=== PATIENT | female | born 1960 | race Caucasian/White ===

== ENCOUNTER 2017-05-07 15:07 | Inpatient (IN) ==
[2017-05-07] MEDS ORDERED: ONDANSETRON 4 MG/2 ML VIAL ONE (15:25)
[2017-05-07] MEDS ORDERED: MORPHINE 2 MG/1 ML SYRINGE ONE (15:25)
[2017-05-07] MEDS ORDERED: ASPIRIN 325 MG TABLET ONE (15:25)
[2017-05-07] MEDS ORDERED: FUROSEMIDE 40 MG/4 ML VIAL ONE (15:26)
[2017-05-07] MEDS ORDERED: NITROGLYCERIN 2% OINT 1 INCH/GM PACK TOP ONE (15:26)
[2017-05-07] MEDS ORDERED: FUROSEMIDE 20 MG/2 ML VIAL ONE (15:26)
[2017-05-07] MEDS ORDERED: ASPIRIN 325 MG TABLET PO STA (15:31)
[2017-05-07] MEDS ORDERED: FUROSEMIDE 100 MG/10 ML VIAL IV STA (15:31)
[2017-05-07] MEDS ORDERED: ONDANSETRON 4 MG/2 ML VIAL IV STA (15:31)
[2017-05-07] MEDS ORDERED: MORPHINE 2 MG/1 ML SYRINGE IV STA (15:31)
[2017-05-07] MEDS ORDERED: methylPREDNISolone SOD SUC 125 MG/2 ML VIAL IV STA (15:31)
[2017-05-07] MEDS ORDERED: NITROGLYCERIN 2% OINT 1 INCH/GM PACK TOP STA (15:31)
[2017-05-07] MEDS ORDERED: cefTRIAXone 1,000 MG in SODIUM CHLORIDE 0.9% 100 ML IV STA (15:31)
--- NOTE | 2017-05-07 15:35 | EKG Report ---
Stationary ECG Study [facility] ER Test Date: 05/07/2017 3:17:56 PM Pat Name: COCO DAVIDSON Department: Room: Gender: F Parking Ramp Attendant: : 1960 Requested by: Eral Du Order Number: [id number] Osei MD: GIOVANI ARANGO Intervals [place] Rate: 90 P: 52 OH: 139 QRS: -63 QRSD: 194 T: 87 QT: 418 QTc: 466 Interpretive Statements ELECTRONIC VENTRICULAR PACEMAKER at 90 bpm (appears to be tracking normal sinus rhythm) Electronically Signed On 05-07-17 15:37:15 CDT by GIOVANI ARANGO [email or web address]
[2017-05-07] MEDS ORDERED: HYDROmorphone 2 MG/1 ML VIAL IV STA (15:40)
[2017-05-07 15:41] LABS: ABG Base Excess 0.4 MMOL/L (-2.5-2.5); ABG HCO3 24.7 MMOL/L (20-26); ABG Oxygen Saturation 95.5 % (95-100); ABG PCO2 38.3 MM HG (35-48); ABG PH 7.417 (7.35-7.45); ABG PO2 75.7 MM HG (80-95); ABG TCO2 20.8 MMOL/L (23-27)
[2017-05-07] MEDS ORDERED: cefTRIAXone 1,000 MG VIAL ONE (15:44)
[2017-05-07] MEDS ORDERED: methylPREDNISolone SOD SUC 125 MG/2 ML VIAL ONE (15:44)
[2017-05-07] MEDS ORDERED: HYDROmorphone 2 MG/1 ML VIAL ONE (15:44)
[2017-05-07 15:52] LABS: Basophils % 0.2 % (0.0-0.8); Eosinophils # 0.1 10*3/uL (0.0-0.87); Eosinophils % 0.6 % (0.00-10.9); Hematocrit 45.3 VOL% (35.7-47.0); Hemoglobin 15.9 GM/DL (12.0-16.0); Immature Granulocytes % 0.5 %; Immature Granulocytes Absolute 0.05 #; Lymphocytes # 1.3 10*3/uL (1.4-4.0); Lymphocytes % 13.2 % (21.3-54.2); Mean Corpuscular HGB Conc 35.1 GM/DL (32-36); Mean Corpuscular Hemoglobin 34 PG (27-34); Mean Corpuscular Volume 97.2 FL (87-102); Monocytes # 0.6 10*3/uL (0.11-0.8); Monocytes % 6.5 % (1.7-12.7); Neutrophils # 7.5 10*3/uL (1.4-7.4); Platelet Count 262 T/CUMM (130-400); Red Blood Count 4.66 MC/CUMM (3.8-5.5); Red Cell Distribution Width 12.7 % (9.3-17.3); White Blood Count 9.5 T/CUMM (4-12)
[2017-05-07] MEDS ORDERED: ALBUTEROL 2.5 MG/3 ML NEB RESP TX SCH (16:00)
--- NOTE | 2017-05-07 16:03 | XRay Report ---
Exam: XR chest 1V portable Indication: Shortness of breath Comparison study: 04/17/2011 Findings: Cardiac silhouette is mildly enlarged. There has been development of perihilar and basilar interstitial airspace opacities with low lung volumes suggestive of pulmonary edema changes and atelectasis. Underlying infiltrates are difficult to exclude. Upper lungs are predominantly clear. There is no pneumothorax. There is no significant pleural effusion. Left chest pacemaker device and wire leads appear stable position. Cardiac silhouette is again mildly enlarged. There is no acute osseous abnormality. Impression: Findings suggestive of pulmonary edema changes. Basilar atelectasis and/or infiltrates and trace pleural effusions are not excluded. PROCEDURE INTERPRETED AT [facility] DEPARTMENT OF RADIOLOGY Final Report Signed by: Sami Rene
[2017-05-07 16:06] LABS: D-Dimer 0.9 MG/L FEU; PT Patient Result 10.2 SECS
--- NOTE | 2017-05-07 16:08 | Emergency Department Note ---
IErnst Emily, am scribing for, and in the presence of, Earl Cameron MD 15: 39. IRakesh Charles R, MD, personally performed the services described in this documentation, ascribed by Janice Dukes in my presence, and it is both accurate and complete 608 . Arrival - Arrival Chief Complaint: Shortness of Breath Stated Complaint: sob ED Nursing Triage Note: patient to room via ems with c/o shortness of breath that started this am. patient states that it started as left upper back pain and went around to her chest. patient states it started at 730 and got worse about 45 mins ste[place]. patient o2sat is 90% on 3.5 liters n/c Mode of Arrival: Stretcher Limitations: No Limitations Source: Patient Time Seen by Provider: 05/07/17 15:20 - History of Present Illness HPI Narrative: Pt is a 56 y/o female who came to ED with c/o left shoulder blade pain that radiates to right shoulder and around to left chest pain that started after shower at 730am. Pt notes the pain increased and has severe SOB, noting that she can't take a deep breath and has orthopnea. She states "feels like an elephant sitting on my chest." Pt reports almost dying 5 yrs ago, in which had a pacemaker put in but no defibrillator. Also, having a heart cath then but was found clean, and denies heart attack in the past. Pt admits to smoking tobacco but denies heavy smoking. Onset (ago): hour(s) Consistency: constant Severity: moderate, severe Severity scale (1-10): 8 Quality: fullness Allergies/Adverse Reactions: Allergies Allergy/AdvReac Type Severity Reaction Status Date / Time No Known Allergies Allergy Unverified 05/07/17 15:18 Review of System - Review of System 12 point system: reviewed and no additional remarkable complaints except as stated - Review of System Constitutional: Absent: fever Respiratory: Present: respiratory distress, wheezing Cardiovascular: Present: chest pain, orthopnea. Absent: dyspnea on exertion, edema Gastrointestinal: Absent: abdominal pain, nausea, vomiting Musculoskeletal: Present: upper back pain. Absent: arm pain, lower back pain, leg pain, neck pain Skin: Absent: rash Neurological: Absent: headache, numbness Psychiatric: Absent: anxiety Medical,Surgical,& Family Hx - Medical History Cardio: History of: Pacemaker - Family History Family History: noncontributory - Social History Smoking Status: Current every day smoker Frequency of Alcohol Use: None Type of Drug Use: None Marital Status: Single Lives With:: Alone Functional capacity: independent ambulation Exam Vital Signs: Vital Signs Temperature 98.2 F 05/07/17 15:07 Pulse Rate 110 H 05/07/17 16:30 Respiratory Rate 21 05/07/17 16:30 Blood Pressure 138/87 05/07/17 15:07 O2 Sat by Pulse Oximetry 91 L 05/07/17 16:30 - General General appearance: alert, in distress (moderate to severe) - Head Head exam: Present: atraumatic, normocephalic - Eye Eye exam: Present: PERRL, EOMI - ENT ENT exam: Present: mucous membranes moist. Absent: mucous membranes dry - Neck Neck exam: Present: full ROM. Absent: tenderness - Chest Chest inspection: Present: symmetric chest wall rise. Absent: tenderness - Respiratory Respiratory exam: Present: accessory muscle use (retractions), rales, respiratory distress, wheezes, other (tachypnic). Absent: normal lung sounds bilaterally (decreased breath sounds bilaterally) - Cardiovascular Cardiovascular exam: Present: tachycardia, normal heart sounds - Abdominal Exam Abdominal exam: Present: soft, normal bowel sounds. Absent: tenderness - Extremities Exam Extremities exam: Present: full ROM, pedal edema (+2). Absent: tenderness - Neurological Exam Neurological exam: Present: alert, oriented X3, CN II-XII intact. Absent: motor sensory deficit - Psychiatric Psychiatric exam: Present: normal affect, normal mood - Skin Skin exam: Present: warm, dry Course Course Narrative: Discussed with pt of possible intubation and she has agreed to these measures, if needed. - Consultations Consultation #1: Hospitalist will admit patient Time: 16:45 Results - Labs CBC & BMP: 05/07/17 15:41 05/07/17 15:41 Lab Results: I have reviewed the patients labs Labs: Laboratory Tests 05/07/17 05/07/17 15:31 15:41 WBC 9.5 RBC 4.66 Hgb 15.9 Hct 45.3 Plt Count 262 Neut % (Auto) 79.0 H Lymph % (Auto) 13.2 L Neut # (Auto) 7.5 H Lymph # (Auto) 1.3 L ABG pH 7.417 ABG pCO2 38.3 ABG pO2 75.7 L ABG HCO3 24.7 ABG Total CO2 20.8 L ABG O2 Saturation 95.5 ABG Base Excess 0.4 FiO2 36.00 Laboratory Tests 05/07/17 15:41 INR 1.0 PT Patient/Control Mix 10.2 D-Dimer, Quantitative 0.9 Laboratory Tests 05/07/17 15:41 Sodium 139 Potassium 3.6 Chloride 103 Carbon Dioxide 29 BUN 21 H Creatinine 1.20 H Glucose 112 H Troponin I < 0.015 Globulin 3.7 H - Diagnostic Findings Procedure: Chest x-ray: report reviewed by me (Findings suggestive of pulmonary edema changes. Basilar atelectasis and/or infiltrates and trace effusions are not excluded.) Critical Care Time Critical Care Time: Yes Total Critical Care Time: 60 (minutes) Disposition Clinical Impression: Acute exacerbation of chronic obstructive airways disease, Tobacco abuse, Acute dyspnea Case discussed with: patient, patient's family Disposition: Still a Patient Condition: Guarded Time of Disposition: 16:44
[2017-05-07 16:14] LABS: Alanine Aminotransferase 22 U/L (13-56); Albumin 4.2 G/DL (3.4-5.0); Alkaline Phosphatase 91 U/L (45-117); Aspartate Amino Transferase 20 U/L (0-37); Blood Urea Nitrogen 21 MG/DL (7-18); Calcium 9.6 MG/DL (8.5-10.1); Glucose 112 MG/DL (74-106); Magnesium 1.9 MG/DL (1.8-2.4); Osmolality,Calculated 280.5 MOS/KG (273-304); Potassium 3.6 MMOL/L (3.5-5.1); Sodium 139 MMOL/L (136-145); Total Protein 7.9 G/DL (6.4-8.3); Troponin I Only < 0.015 NG/ML (0.00-0.045)
[2017-05-07] MEDS ORDERED: METHOCARBAMOL 1,000 MG/10 ML VIAL IV STA (16:40)
[2017-05-07] MEDS ORDERED: ENOXAPARIN 100 MG/ML SYRINGE SUBCUT STA (16:40)
[2017-05-07] MEDS ORDERED: METHOCARBAMOL 1,000 MG/10 ML VIAL ONE (16:45)
[2017-05-07] MEDS ORDERED: ENOXAPARIN 100 MG/ML SYRINGE SUBCUT ONE (16:45)
[2017-05-07 17:02] LABS: Apearance,Urine CLEAR (Clear); Bilirubin,Urine Negative (Negative); Blood, Urine Negative (Negative); Glucose,Urine (UA) Negative (Negative); Hyaline Casts,Urine 8 /LPF (0-3); Ketones,Urine Negative (Negative); Nitrite,Urine Negative (Negative); Protein,Urine Negative; RBC,Urine <1 /HPF (0-4); Squamous Epithelial Cell,Urine Occasional /HPF (0-10); Urine Color Yellow (Yellow); Urine Specific Gravity 1.016 (1.001-1.035); Urine Urobilinogen < 2.0 EU/DL (0.2-1.0); WBC,Urine <1 /HPF (0-6)
[2017-05-07 17:07] LABS: Barbiturates Screen,Urine Negative (Negative); Benzodiazepines Screen,Urine Positive (Negative); Cannabinoid Screen,Urine Negative (Negative); Opiate Screen,Urine Positive (Negative); Phencyclidine Screen,Urine Negative (Negative)
[2017-05-07] MEDS ORDERED: METOPROLOL TARTRATE 25 MG TABLET PO STA (17:33)
--- NOTE | 2017-05-07 17:37 | Hospitalist History & Physical ---
Assessment and Plan - Time spent with patient Time spent with patient: Greater than 30 minutes (1) Acute dyspnea Status: Acute Assessment and plan: Patient has acute dyspnea. Chest x-ray is consistent with pulmonary edema as is her history of recent orthopnea and dyspnea on exertion. However she also has shortness of breath with cough productive of green sputum which may be bronchitis with mild exacerbation of COPD however she has no wheezing on exam. We will admit her to a cardiac monitored bed and obtain serial cardiac isoenzymes while providing aspirin, nitrates, Lovenox, beta blockade and obtain echocardiogram in the a.m. along with formal cardiology consultation. Because of her tobacco use history of COPD with symptoms of at least bronchitis, she has been cultured and placed on empiric IV antibiotics will continue O2 supplementation and nebulizer therapy. Will hold off on any corticosteroid therapy at this time as she is not wheezing. Current Visit: Yes (2) Hypertension Status: Chronic Assessment and plan: Patient is currently hemodynamically stable. Continue current medical therapy and follow closely. Current Visit: Yes Qualifiers: Hypertension type: essential hypertension Qualified Code(s): I10 - Essential (primary) hypertension (3) Tobacco abuse Status: Chronic Assessment and plan: We have discussed smoking cessation she states that she is going to quit immediately. Current Visit: Yes (4) History of permanent cardiac pacemaker placement Status: Chronic Assessment and plan: Cardiology has been consulted. Current Visit: Yes History of Present Illness Chief complaint: Short of breath History of present illness: Ms. Chopra is a 56 year old white female with a history of hypertension, status post permanent pacemaker placement [address] Valdivia who presents complaining of onset of severe pain of dull quality originating in the upper back and subscapular regions early this morning and has been constant now for 7- 8 hours with associated shortness of breath but no nausea or diaphoresis. She states it does hurt to inspire. She states that she is normally able to sleep lying on her side however today she must sit straight up otherwise she gets short of breath when lying back. She is also complaining of significant increase in dyspnea with exertion from fairly unlimited to approximately 10 yards today. She has had a mild cough productive of yellow to green phlegm. She states that she does not wear home O2 but does have some inhalers that she uses. She denies any fever, chills, diarrhea, constipation, melena, hematochezia, hematemesis, dysuria, hematuria, urinary frequency urgency incontinence, focal motor weakness or paresthesias, headache, visual or auditory disturbances. Home Medications Medication Instructions Recorded Confirmed Type Gemfibrozil [Lopid] 600 mg PO BID 05/07/17 05/07/17 History Metoprolol Succinate Xl [Toprol Xl] 100 mg PO DAILY 05/07/17 05/07/17 History RX: Aspirin EC Tab 81 mg PO DAILY 05/07/17 05/07/17 History Sertraline [Zoloft] 200 mg PO BEDTIME 05/07/17 05/07/17 History Triamterene/Hctz 37.5-25 Tab 1 tablet PO DAILY 05/07/17 05/07/17 History [Maxzide 37.5-25] Allergies Allergy/AdvReac Type Severity Reaction Status Date / Time morphine Allergy Hallucinati Verified 05/07/17 17:31 ng Medical,Surgical,& Family Hx - Medical History Cardio: History of: Hypertension, Pacemaker - Surgical History Abdominal Surgeries: Surgical HX of: Cholecystectomy Reproductive Surgeries: Surgical HX of;: Section - Family History Family History: Denies;: Family Cancer, Family Diabetes, Family Heart Disease - Social History Smoking Status: Current every day smoker Frequency of Alcohol Use: None Type of Drug Use: None Functional capacity: independent ambulation 12 point system: reviewed and no additional remarkable complaints except as stated Exam - Constitutional Vitals: Period Temp Pulse Resp BP Sys/Mercado Pulse Ox Last 24 Hr 98.2 F-98.2 F 90-116 21-30 115-139/73-87 85-95 General appearance: mild distress - Head Head exam: Present: normocephalic, atraumatic - Eye Eye exam: Present: EOMI. Absent: scleral icterus Pupils: Present: NICA - ENT ENT exam: Present: normal oropharynx - Neck Neck exam: Present: normal inspection. Absent: lymphadenopathy, meningismus, tenderness, thyromegaly - Respiratory Respiratory exam: Present: rales (Rales in the lower one third lung juárez bilaterally). Absent: accessory muscle use, chest wall tenderness, rhonchi, wheezes - Cardiovascular Cardiovascular exam: Present: regular rate and rhythm, tachycardia. Absent: rubs, systolic murmur - GI/Abdominal GI/Abdominal exam: Present: normal bowel sounds, soft. Absent: mass, tenderness , rebound - Extremities Exam Extremities exam: Absent: calf tenderness, edema - Back Exam Back exam: Present: normal inspection - Neurological Exam Neurological exam: Present: alert, oriented X3, CN II-XII intact. Absent: motor sensory deficit - Psychiatric Psychiatric exam: Present: normal affect, normal mood. Absent: agitated, anxious - Skin Skin exam: Present: warm, dry. Absent: erythema, petechiae, rash Results - Labs CBC & BMP: 05/07/17 15:41 05/07/17 15:41 Lab Results: I have reviewed the past 24 hour labs - Impressions EKG is electronic paced rhythm - Diagnostic Findings Procedure: Chest x-ray: report reviewed by me
[2017-05-07] MEDS ORDERED: METOPROLOL TARTRATE 25 MG TABLET ONE (17:50)
[2017-05-07] MEDS ORDERED: ALBUTEROL/IPRATROPIUM 3 ML NEB RESP TX PRN (18:20)
[2017-05-07] MEDS ORDERED: ONDANSETRON 4 MG/2 ML VIAL IV PRN (18:20)
[2017-05-07] MEDS: ALBUTEROL/IPRATROPIUM 3 ML NEB RESP TX SCH (19:29)
[2017-05-07] MEDS: NITROGLYCERIN 2% OINT 1 INCH/GM PACK TOP SCH (20:20)
[2017-05-07] MEDS: GEMFIBROZIL 600 MG TABLET PO SCH (21:27)
[2017-05-07] MEDS: POTASSIUM CHLORIDE 20 MEQ TABLET PO SCH (21:28)
[2017-05-07] MEDS: FUROSEMIDE 40 MG/4 ML VIAL IV SCH (21:28)
[2017-05-07] MEDS: SERTRALINE 100 MG TABLET PO SCH (21:28)
[2017-05-08] MEDS: ALBUTEROL/IPRATROPIUM 3 ML NEB RESP TX SCH ×4 (00:45→19:49)
[2017-05-08] MEDS: NITROGLYCERIN 2% OINT 1 INCH/GM PACK TOP SCH ×4 (01:21→18:11)
[2017-05-08] MEDS: POTASSIUM CHLORIDE 20 MEQ TABLET PO SCH ×2 (01:21→05:17)
[2017-05-08] MEDS: ZALEPLON 5 MG CAPSULE PO PRN ×2 (02:34→20:54)
[2017-05-08 06:40] LABS: Hematocrit 40.1 VOL% (35.7-47.0); Hemoglobin 14.1 GM/DL (12.0-16.0); Immature Granulocytes % 0.6 %; Immature Granulocytes Absolute 0.05 #; Lymphocytes # 1.2 10*3/uL (1.4-4.0); Lymphocytes % 15.5 % (21.3-54.2); Mean Corpuscular HGB Conc 35.2 GM/DL (32-36); Mean Corpuscular Hemoglobin 34 PG (27-34); Mean Corpuscular Volume 95.9 FL (87-102); Mean Platelet Volume 10.2 FL (9.6-12.0); Monocytes # 0.5 10*3/uL (0.11-0.8); Monocytes % 5.8 % (1.7-12.7); Neutrophils % 78.1 % (38.7-73.9); Platelet Count 232 T/CUMM (130-400); Red Blood Count 4.18 MC/CUMM (3.8-5.5); Red Cell Distribution Width 12.3 % (9.3-17.3); White Blood Count 7.7 T/CUMM (4-12)
[2017-05-08 07:20] LABS: Osmolality,Calculated 284.7 MOS/KG (273-304); Potassium 3.8 MMOL/L (3.5-5.1); Risk Ratio 3.8; Thyroid Stimulating Hormone 0.16 uIU/ml (0.358-3.74); VLDL CHOLESTEROL 16.6 MG/DL
[2017-05-08] MEDS: NICOTINE 21 MG/24 HR PATCH TRANSDERM SCH (08:56)
[2017-05-08] MEDS: METOPROLOL SUCCINATE XL 100 MG TABLET PO SCH (08:57)
[2017-05-08] MEDS: FUROSEMIDE 40 MG/4 ML VIAL IV SCH ×2 (08:57→16:01)
[2017-05-08] MEDS: GEMFIBROZIL 600 MG TABLET PO SCH ×2 (08:57→20:45)
[2017-05-08] MEDS: ASPIRIN EC 81 MG TABLET PO SCH (08:57)
--- NOTE | 2017-05-08 10:24 | Cardiology Consult Note ---
Assessment and Plan - Time spent with patient Time spent with patient: Greater than 30 minutes (due to assessment, plan, and documentation) Time spent discussing smoking cessation with patient: 3 to 10 minutes (1) Acute dyspnea Status: Acute Assessment and plan: See plan of care listed below. Current Visit: Yes (2) Hypertension Status: Chronic Assessment and plan: See plan of care listed below. Current Visit: Yes Qualifiers: Hypertension type: essential hypertension Qualified Code(s): I10 - Essential (primary) hypertension (3) Tobacco abuse Status: Chronic Assessment and plan: See plan of care listed below. Current Visit: Yes (4) History of permanent cardiac pacemaker placement Status: Chronic Assessment and plan: See plan of care listed below. Current Visit: Yes (5) COPD (chronic obstructive pulmonary disease) Status: Chronic Assessment and plan: See plan of care listed below. Current Visit: Yes (6) Dyslipidemia Status: Chronic Assessment and plan: See plan of care listed below. Current Visit: Yes History of Present Illness - Data of Consult Patient: new to practice Consult date: 05/07/17 Requesting Physician: Otto Stanley - Consult Narrative Reason for consult: acute dyspnea History of present illness: Clinical Field Specialist: yaya Charles PCP: Margie Duffy at [facility] in [place] Ms. Chopra is a 56 year old female with a history of hypertension, history of dual-chamber pacemaker placement, tobacco abuse. She is status post dual-chamber pacemaker placement on January 19, 2011 after presenting with syncope , having Mobitz type II AV block and eventual complete heart block. She is a 2 pack per day smoker. During her December 2010 presentation to the hospital, she underwent left heart catheterization which revealed mild luminal irregularities but otherwise widely patent vessels an ejection fraction of 50% with severely elevated LVEDP. Ms. Chopra presented to the emergency room with complaints of acute dyspnea. She tells me that she has had sinus congestion for the past couple days but woke up yesterday morning with the pain in her left shoulder. She states that around 2:00 yesterday she became so short of breath that she could hardly go to the bathroom and make it back to her room at work. She states that at that time it felt as if her left shoulder pain moves down her back and encircled her waist all the way around her bra line. She reports that actually made it back from the bathroom, she had her structural mill supervisor called ambulance. She reports for the past 2 weeks she has been unable to lie flat due to orthopnea and has had some progressive dyspnea on exertion. She states she usually always has dyspnea on exertion and uses Spiriva inhaler daily and uses her rescue inhaler approximately 1 time per week. He also complains of occasional sharp left- sided chest pains at her pacemaker insertion site. She has had no recent exertional chest pain. She has also had a productive cough of different colored sputum including occasionally green, brown, and yellow tinged. She states it still hurts when she breathes and she feels as though she cannot draw a full deep breath without pain. She is also tender to palpation along the bra line all the way around her chest and she states she just "feels very sore." Upon arrival, she was given breathing treatments, IV steroids, IV antibiotics, and IV Lasix. She also received 1 mg of Dilaudid along with a muscle relaxer as well as Nitropaste, aspirin, and p.o. metoprolol. She reports her breathing treatment lasted for approximately an hour and seemed to help a good deal. She also noticed further relief with nitroglycerin. Chest x-ray was suggestive of pulmonary edema. Bibasilar atelectasis and/or infiltrates and trace pleural effusions cannot be excluded. She has diuresed well and is -2.7 L in her I&O' s. BNP on admission was 39. She had 3 sets of negative troponins. Her creatinine is 1.1 today. She is very emotional upon exam and tells me that she continues to hurt and she is very worried about her condition but does not have insurance. She states it is not offered by her workplace and she has been turned down by [facility] in the past due to pre-existing conditions. She states that she usually stays Margie Duffy at the [facility] in [place]. She tells me that she knows she should have been following with a contour path tape mill operator the past several years but has not done so due to lack of insurance. According to her sparse clinic record , it looks as though her pacemaker was last interrogated in August 2016. ASSESSMENT/PLAN: 1. ACUTE DYSPNEA - Multifactorial. This is likely related to her pulmonary edema , even though her BNP is normal but could also be due to bronchitis with an exacerbation of her COPD. She has been placed on appropriate medications for the treatment of both conditions. An echocardiogram has been done and will be reviewed. D-dimer is mildly elevated at 0.9. Will obtain VQ lung scan to rule out PE. Continue IV Lasix. 2. HYPERTENSION - Blood pressure has been well controlled, occasional hypotensive readings. She has maintained a v-paced rhythm with underlying sinus rhythm. Will continue to monitor and adjust accordingly. Continue beta-zach , aspirin, lipid-lowering agent. If echocardiogram reveals decreased systolic function, will consider introduction of TRUMAN inhibitor. 3. TOBACCO ABUSE - She is a 2 pack per day smoker but reports she is quitting. She tells me that feeling as though she couldn't breathe yesterday scared her and she has resolved to quit. She states she previously quit for a year without assistance from medications or supplements but started back smoking after her daughter had a car accident. Spent greater than 5 minutes discussing the harmful effects of tobacco abuse and urged her to be compliant with complete cessation. 4. HISTORY OF PACEMAKER PLACEMENT - She is status post dual-chamber pacemaker placement on January 19, 2011 after presenting with syncope, having Mobitz type II AV block and eventual complete heart block. 5. COPD - She has been started on IV antibiotics and breathing treatments as well as supplemental O2. 6. OBESITY - Chronic. Discussed lifestyle modifications including diet and exercise once patient is improved. 7. DYSLIPIDEMIA - Continue lipid lowering agent. Lipid panel revealed triglycerides 83, cholesterol 156, LDL 105, HDL 41. CC: Tu Lucero - Home Medications and Allergies Home Medications: Home Medications Medication Instructions Recorded Confirmed Type Aspirin EC Tab 81 mg PO DAILY 05/07/17 05/07/17 History Gemfibrozil [Lopid] 600 mg PO BID 05/07/17 05/07/17 History Metoprolol Succinate Xl [Toprol Xl] 100 mg PO DAILY 05/07/17 05/07/17 History Sertraline [Zoloft] 200 mg PO BEDTIME 05/07/17 05/07/17 History Simvastatin [Zocor] 20 mg PO BEDTIME 05/07/17 05/07/17 History Triamterene/Hctz 37.5-25 Tab 1 tablet PO DAILY 05/07/17 05/07/17 History [Maxzide 37.5-25] Allergies/Adverse Reactions: Allergies Allergy/AdvReac Type Severity Reaction Status Date / Time morphine Allergy Hallucinati Verified 05/07/17 17:31 ng Review of systems: - Constitutional: Present: fatigue, As per HPI. Absent: anorexia, chills, daytime sleepiness, excessive sweating, fever(s), frequent falls, headache(s), increased appetite, lethargy, malaise, night sweats, stops breathing during sleep, weakness, weight gain, weight loss. - EENT Eyes: Present: As per HPI. Absent: blurry vision, diplopia, loss of vision Ears: Present: As per HPI. Absent: decreased hearing, ear discharge, ear pain Nose, mouth and throat: Present: nasal congestion, As per HPI. Absent: dysphagia , epistaxis, headache(s), hoarseness, lip swelling, neck mass, neck pain, sinus pressure, sore throat, throat swelling, tongue swelling, vertigo - Cardiovascular: Present: chest pain at rest, dyspnea, dyspnea on exertion, edema, lightheadedness, as per HPI. Absent: chest pain with activity, claudication, diaphoresis, radiating jaw, neck or arm pain, orthopnea, palpitations, PND - Respiratory: Present: dyspnea, dyspnea on exertion, cough, pain on inspirationas per HPI. Absent: hemoptysis, wheezing, snoring, - Gastrointestinal: Present: As per HPI. Absent: abdominal pain, bloating, change in bowel habits, constipation, diarrhea, heartburn, hematemesis, hematochezia, loose stools, melena, nausea, vomiting - Genitourinary: Present: As per HPI. Absent: difficulty urinating, dysuria, flank pain, hematuria, nocturia, urinary frequency, urinary incontinence - Musculoskeletal: Present: back pain, As per HPI. Absent: arthralgias, joint swelling, limited range of motion, muscle cramps, muscle weakness, myalgias - Neurological: Present: As per HPI. Absent: abnormal gait, abnormal speech, behavioral changes, confusion, convulsions, disequilibrium, dizziness, focal weakness, frequent falls, headache(s), memory loss, numbness, paresthesias, radicular pain, syncope, tremor(s) - Psychiatric: Present: anxiety, with emotional episodes of crying, As per HPI. Absent: confusion, depression, panic attacks - Endocrine: Present: fatigue, heat intolerance, As per HPI. Absent: cold intolerance, polydipsia, polyphagia - Hematologic/Lymphatic: Present: As per HPI. Absent: easy bleeding, easy bruising, lymphadenopathy Medical,Surgical,& Family Hx - Medical History Cardio: History of: Hypertension, Pacemaker Respiratory: History of: COPD - Surgical History Abdominal Surgeries: Surgical HX of: Cholecystectomy Reproductive Surgeries: Surgical HX of;: Section - Family History Family History: Denies;: Family Cancer, Family Diabetes, Family Heart Disease - Social History Smoking Status: Current every day smoker Frequency of Alcohol Use: None Type of Drug Use: None Marital Status: Lives With:: Alone Functional capacity: independent ambulation Physical Examination Vital Signs Temp Pulse Resp BP Pulse Ox 98.2 F 94 H 26 H 138/87 90 L 05/07/17 15:07 05/07/17 15:07 05/07/17 15:07 05/07/17 15:07 05/07/17 15:07 Exam: General appearance: Pleasant and cooperative. Overweight, no acute distress. Head exam: Present: normal inspection, normocephalic, atraumatic. Absent: hematoma, laceration Eye exam: Present: EOMI. Absent: conjunctival injection, nystagmus, periorbital swelling, scleral icterus, laceration to eyelids Pupils: Present: PERRL. Absent: constricted, dilated, fixed, irregular, unequal ENT exam: Present: normal exam, normal external ear exam Neck exam: Present: normal inspection. Absent: lymphadenopathy, meningismus, tenderness, thyromegaly, carotid bruit Respiratory exam: Present: bibasilar rales posteriorly, otherwise clear to auscultation bilaterally. Absent: accessory muscle use, chest wall tenderness, wheezing. Cardiovascular exam: Present: regular rate and rhythm. Absent: gallop, JVD, rubs, murmur GI/Abdominal exam: Present: normal bowel sounds, soft. Absent: distended, firm , guarding, hernia, mass, tenderness, rebound. Extremities exam: Present: normal inspection, normal capillary refill. Upper extremity pulses 2+. Lower extremity pulses 2+, trace BLE edema. Absent: calf tenderness Musculoskeletal: Present: No Fluid Collection, No Pain, Normal Range of Motion Back exam: Present: normal inspection, soreness and tenderness to palpation at bra-line across back, radiating to beneath bilateral breasts surrounding chest. Absent: muscle spasm, vertebral tenderness Neurological exam: Present: alert, oriented X3, grossly intact without resting or essential tremor Psychiatric exam: Present: emotional and crying Skin exam: Present: normal color, warm, dry, intact. Absent: cyanosis, diaphoretic, rash, urticaria Result/EKG - Labs CBC & BMP: 05/08/17 06:00 05/08/17 06:00 Lab Results: I have reviewed the past 24 hour labs Labs: Laboratory Results - last 24 hr 05/07/17 05/07/17 05/07/17 15:31 15:41 15:41 WBC 9.5 RBC 4.66 Hgb 15.9 Hct 45.3 MCV 97.2 MCH 34 MCHC 35.1 RDW 12.7 Plt Count 262 MPV 10.0 Neut % (Auto) 79.0 H Lymph % (Auto) 13.2 L Mitchell % (Auto) 6.5 Eos % (Auto) 0.6 Baso % (Auto) 0.2 Neut # (Auto) 7.5 H Lymph # (Auto) 1.3 L Mitchell # (Auto) 0.6 Eos # (Auto) 0.1 Baso # (Auto) 0.0 Immature Gran % 0.5 Nucleated RBC % 0.0 Immature Gran # 0.05 Nucleated RBCs # 0.00 Immature Plt Fraction 0.0 INR 1.0 PT Patient/Control Mix 10.2 D-Dimer, Quantitative 0.9 ABG pH 7.417 ABG pCO2 38.3 ABG pO2 75.7 L ABG HCO3 24.7 ABG Total CO2 20.8 L ABG O2 Saturation 95.5 ABG Base Excess 0.4 FiO2 36.00 Sodium Potassium Chloride Carbon Dioxide Anion Gap BUN Creatinine GFR Calculation BUN/Creatinine Ratio Glucose Calculated Osmolality Calcium Magnesium Total Bilirubin AST ALT Alkaline Phosphatase Troponin I B-Natriuretic Peptide Total Protein Albumin Globulin Albumin/Globulin Ratio Triglycerides Cholesterol LDL Cholesterol VLDL Cholesterol HDL Cholesterol Heart Disease Risk Ratio Free T4 TSH 3rd Generation Urine Color Urine Appearance Urine pH Ur Specific Belton Urine Protein Urine Glucose (UA) Urine Ketones Urine Blood Urine Nitrate Urine Bilirubin Urine Urobilinogen Urine Leukocytes Urine RBC Urine WBC Ur Squamous Epith Cells Hyaline Casts Ur Culture Indicated? Urine Opiates Screen Ur Barbiturates Screen Ur Phencyclidine Scrn U Amphetamine/Methamph U Benzodiazepines Scrn U Cocaine Metab Screen U Cannabinoids Screen 05/07/17 05/07/17 05/07/17 15:41 15:41 16:52 WBC RBC Hgb Hct MCV MCH MCHC RDW Plt Count MPV Neut % (Auto) Lymph % (Auto) Mitchell % (Auto) Eos % (Auto) Baso % (Auto) Neut # (Auto) Lymph # (Auto) Mitchell # (Auto) Eos # (Auto) Baso # (Auto) Immature Gran % Nucleated RBC % Immature Gran # Nucleated RBCs # Immature Plt Fraction INR PT Patient/Control Mix D-Dimer, Quantitative ABG pH ABG pCO2 ABG pO2 ABG HCO3 ABG Total CO2 ABG O2 Saturation ABG Base Excess FiO2 Sodium 139 Potassium 3.6 Chloride 103 Carbon Dioxide 29 Anion Gap 10.6 BUN 21 H Creatinine 1.20 H GFR Calculation 64 BUN/Creatinine Ratio 17.00 Glucose 112 H Calculated Osmolality 280.5 Calcium 9.6 Magnesium 1.9 Total Bilirubin 0.40 AST 20 ALT 22 Alkaline Phosphatase 91 Troponin I < 0.015 B-Natriuretic Peptide 39 Total Protein 7.9 Albumin 4.2 Globulin 3.7 H Albumin/Globulin Ratio 1.1 Triglycerides Cholesterol LDL Cholesterol VLDL Cholesterol HDL Cholesterol Heart Disease Risk Ratio Free T4 TSH 3rd Generation Urine Color Yellow Urine Appearance Clear Urine pH 5.0 Ur Specific Belton 1.016 Urine Protein Negative Urine Glucose (UA) Negative Urine Ketones Negative Urine Blood Negative Urine Nitrate Negative Urine Bilirubin Negative Urine Urobilinogen < 2.0 H Urine Leukocytes Negative Urine RBC <1 Urine WBC <1 Ur Squamous Epith Cells Occasional Hyaline Casts 8 Ur Culture Indicated? Not indicated Urine Opiates Screen Ur Barbiturates Screen Ur Phencyclidine Scrn U Amphetamine/Methamph U Benzodiazepines Scrn U Cocaine Metab Screen U Cannabinoids Screen 05/07/17 05/07/17 05/07/17 16:52 18:32 21:19 WBC RBC Hgb Hct MCV MCH MCHC RDW Plt Count MPV Neut % (Auto) Lymph % (Auto) Mitchell % (Auto) Eos % (Auto) Baso % (Auto) Neut # (Auto) Lymph # (Auto) Mitchell # (Auto) Eos # (Auto) Baso # (Auto) Immature Gran % Nucleated RBC % Immature Gran # Nucleated RBCs # Immature Plt Fraction INR PT Patient/Control Mix D-Dimer, Quantitative ABG pH ABG pCO2 ABG pO2 ABG HCO3 ABG Total CO2 ABG O2 Saturation ABG Base Excess FiO2 Sodium Potassium Chloride Carbon Dioxide Anion Gap BUN Creatinine GFR Calculation BUN/Creatinine Ratio Glucose Calculated Osmolality Calcium Magnesium Total Bilirubin AST ALT Alkaline Phosphatase Troponin I < 0.015 < 0.015 B-Natriuretic Peptide Total Protein Albumin Globulin Albumin/Globulin Ratio Triglycerides Cholesterol LDL Cholesterol VLDL Cholesterol HDL Cholesterol Heart Disease Risk Ratio Free T4 TSH 3rd Generation Urine Color Urine Appearance Urine pH Ur Specific Belton Urine Protein Urine Glucose (UA) Urine Ketones Urine Blood Urine Nitrate Urine Bilirubin Urine Urobilinogen Urine Leukocytes Urine RBC Urine WBC Ur Squamous Epith Cells Hyaline Casts Ur Culture Indicated? Urine Opiates Screen Positive H Ur Barbiturates Screen Negative Ur Phencyclidine Scrn Negative U Amphetamine/Methamph Negative U Benzodiazepines Scrn Positive H U Cocaine Metab Screen Negative U Cannabinoids Screen Negative 05/08/17 05/08/17 05/08/17 06:00 06:00 06:00 WBC 7.7 RBC 4.18 Hgb 14.1 Hct 40.1 MCV 95.9 MCH 34 MCHC 35.2 RDW 12.3 Plt Count 232 MPV 10.2 Neut % (Auto) 78.1 H Lymph % (Auto) 15.5 L Mitchell % (Auto) 5.8 Eos % (Auto) 0.0 Baso % (Auto) 0.0 Neut # (Auto) 6.0 Lymph # (Auto) 1.2 L Mitchell # (Auto) 0.5 Eos # (Auto) 0.0 Baso # (Auto) 0.0 Immature Gran % 0.6 Nucleated RBC % 0.0 Immature Gran # 0.05 Nucleated RBCs # 0.00 Immature Plt Fraction 0.0 INR PT Patient/Control Mix D-Dimer, Quantitative ABG pH ABG pCO2 ABG pO2 ABG HCO3 ABG Total CO2 ABG O2 Saturation ABG Base Excess FiO2 Sodium 138 Potassium 3.8 Chloride 101 Carbon Dioxide 29 Anion Gap 11.8 BUN 24 H Creatinine 1.10 H GFR Calculation 71 BUN/Creatinine Ratio 21.00 H Glucose 206 H Calculated Osmolality 284.7 Calcium 9.0 Magnesium Total Bilirubin AST ALT Alkaline Phosphatase Troponin I B-Natriuretic Peptide Total Protein Albumin Globulin Albumin/Globulin Ratio Triglycerides 83 Cholesterol 156 LDL Cholesterol 105.0 VLDL Cholesterol 16.6 HDL Cholesterol 41 Heart Disease Risk Ratio 3.80 Free T4 1.48 H TSH 3rd Generation 0.160 L Urine Color Urine Appearance Urine pH Ur Specific Bel[place] Urine Protein Urine Glucose (UA) Urine Ketones Urine Blood Urine Nitrate Urine Bilirubin Urine Urobilinogen Urine Leukocytes Urine RBC Urine WBC Ur Squamous Epith Cells Hyaline Casts Ur Culture Indicated? Urine Opiates Screen Ur Barbiturates Screen Ur Phencyclidine Scrn U Amphetamine/Methamph U Benzodiazepines Scrn U Cocaine Metab Screen U Cannabinoids Screen - EKG EKG results: interpreted by me (v-pacing with underlying sinus rhythm)
[2017-05-08] MEDS ORDERED: KETOROLAC 30 MG/1 ML VIAL IV ONE (10:41)
--- NOTE | 2017-05-08 11:16 | Hospitalist Progress Note ---
Assessment and Plan (1) CHF (congestive heart failure) Status: Acute Assessment and plan: She is presently being treated with intravenous furosemide. Cardiology has been consulted. Current Visit: Yes (2) Pneumonia Status: Acute Assessment and plan: Chest x-ray is suggestive, although not diagnostic of pneumonia. She is presently being treated with intravenous ceftriaxone. Current Visit: Yes Hospitalist: Subjective Interval history: Her major complaint is that of severe back and chest pain. She states that she has been experiencing persistent pain since yesterday afternoon. She is not experiencing shortness of breath. Chest x-ray on admission demonstrated bibasilar infiltrates most compatible with pulmonary edema, but also suggestive of possible pneumonia. She has been treated since admission with intravenous antibiotics and furosemide. She requests analgesic medication. Exam - Constitutional Vitals: Period Temp Pulse Resp BP Sys/Mercado Pulse Ox Last 24 Hr 97.6 F-98.5 F 79-117 16-30 95-139/42-87 85-99 General appearance: no acute distress, over weight - Head Head exam: Present: normal inspection - Neck Neck exam: Present: normal inspection - Respiratory Respiratory exam: Present: decreased breath sounds, other (Bibasilar rales.) - Cardiovascular Cardiovascular exam: Present: regular rate and rhythm - GI/Abdominal GI/Abdominal exam: Present: normal bowel sounds, soft, other (Nontender with no palpable masses or hepatosplenomegaly.) - Back Exam Back exam: Present: normal inspection, other (Nontender.) - Neurological Exam Neurological exam: Present: alert, oriented X3 - Psychiatric Psychiatric exam: Present: normal affect - Skin Skin exam: Present: normal color, warm, intact Results - Labs CBC & BMP: 05/08/17 06:00 05/08/17 06:00
--- NOTE | 2017-05-08 12:34 | Nuclear Medicine Report ---
Nuclear medicine ventilation/perfusion scan Indication: Shortness of breath Comparison: Chest x-ray April 2017 Findings: Ventilation scan: The patient received 40.0 mCi of 90 9M technetium DTPA aerosolized. There is normal distribution of radiotracer in both lungs. Perfusion scan: Patient received 5.0 mCi of 90 9M technetium MAA intravenously. There is normal in distribution of radiotracer in both lungs without evidence of segmental or greater defects. Impression: Normal nuclear medicine ventilation perfusion scan. This indicates low probability for pulmonary embolism. PROCEDURE INTERPRETED AT [facility] DEPARTMENT OF RADIOLOGY Final Report Signed by: Dr. Sixto Gtz
--- NOTE | 2017-05-08 14:52 | ECHO Report ---
Lai Chopra Exam Date: 05/08/2017 09:19 Referring Physician: Technologist: Chetna Muro Age: 56 Ht (in): 67 Wt (lb): 235 Gender: F Exam Location: [facility] Echo Indications: SOB, Hx. CHF, COPD, tobacco abuse, acute dyspnea, HTN, pacemaker BP: 97 / 42 HR: 95 Rhythm: Other Technical Quality: Technically difficult study IMPRESSIONS Normal left ventricular cavity size. Mild concentric left ventricular hypertrophy with grade 1 diastolic dysfunction. Left ventricular ejection fraction is estimated at 55 %. Abnormal septal motion. Normal right ventricular size. Pacemaker wires in the right-sided heart chamber. MEASUREMENTS (Male / Female) Normal Values 2D ECHO LV Diastolic Diameter PLAX 4.2 cm 4.2 - 5.9 / 3.9 - 5.3 cm LV Systolic Diameter PLAX 2.3 cm LV Fractional Shortening PLAX 44.3 % IVS Diastolic Thickness 1.2 cm 0.6 - 1.0 / 0.6 - 0.9 cm LVPW Diastolic Thickness 1.2 cm 0.6 - 1.0 / 0.6 - 0.9 cm Aortic Root Diameter 3.2 cm LA Systolic Diameter LX 3.5 cm 3.0 - 4.0 / 2.7 - 3.8 cm FINDINGS Left Ventricle Normal left ventricular cavity size. Mild concentric left ventricular hypertrophy with grade 1 diastolic dysfunction. Left ventricular ejection fraction is estimated at 55 %. Abnormal septal motion. Right Ventricle Normal right ventricular size. Pacemaker wires in the right-sided heart chamber. Right Atrium Normal right atrial size. Left Atrium Normal left atrial size. Mitral Valve Morphologically normal mitral valve. Trace regurgitation. Aortic Valve The aortic valve is trileaflet and has normal motion. Tricuspid Valve Morphologically normal tricuspid valve. Insufficient data to estimate pulmonary artery systolic pressure Pulmonic Valve Morphologically normal pulmonic valve. Pericardium No pericardial effusion. Aorta Normal size aortic root and proximal ascending aorta. Dilip Charles (Electronically Signed) Final Date: 08 May 2017 14:51
[2017-05-08] MEDS: cefTRIAXone 1,000 MG in SODIUM CHLORIDE 0.9% 100 ML IV SCH (16:02)
[2017-05-08] MEDS: SIMVASTATIN 20 MG TABLET PO SCH (20:45)
[2017-05-08] MEDS: SERTRALINE 100 MG TABLET PO SCH (20:45)
[2017-05-08] MEDS: ENOXAPARIN 40 MG/0.4 ML SYRINGE SUBCUT SCH (20:49)
[2017-05-09] MEDS: ALBUTEROL/IPRATROPIUM 3 ML NEB RESP TX SCH ×4 (00:50→20:53)
[2017-05-09] MEDS: NITROGLYCERIN 2% OINT 1 INCH/GM PACK TOP SCH ×5 (01:17→23:53)
[2017-05-09 05:49] LABS: Basophils % 0.1 % (0.0-0.8); Eosinophils % 0.4 % (0.00-10.9); Hematocrit 41.6 VOL% (35.7-47.0); Immature Granulocytes % 0.1 %; Immature Granulocytes Absolute 0.01 #; Lymphocytes # 3.5 10*3/uL (1.4-4.0); Lymphocytes % 43.4 % (21.3-54.2); Mean Corpuscular HGB Conc 33.7 GM/DL (32-36); Mean Corpuscular Hemoglobin 33 PG (27-34); Mean Corpuscular Volume 98.6 FL (87-102); Monocytes # 0.9 10*3/uL (0.11-0.8); Monocytes % 11.2 % (1.7-12.7); Neutrophils # 3.6 10*3/uL (1.4-7.4); Neutrophils % 44.8 % (38.7-73.9); Platelet Count 212 T/CUMM (130-400); Red Blood Count 4.22 MC/CUMM (3.8-5.5); Red Cell Distribution Width 12.5 % (9.3-17.3); White Blood Count 8.1 T/CUMM (4-12)
[2017-05-09 06:20] LABS: Magnesium 2.4 MG/DL (1.8-2.4); Osmolality,Calculated 291.1 MOS/KG (273-304); Potassium 4.1 MMOL/L (3.5-5.1)
--- NOTE | 2017-05-09 07:27 | XRay Report ---
XR chest 2V Indication: Dyspnea Comparison: 07 May 2017 Findings: The heart and mediastinum are stable in size and configuration. Pacemaker device is unchanged in position. The pulmonary vascularity is decreased with decreasing interstitial lung density. No other lung infiltrates, effusions, pneumothorax or other abnormality is demonstrated. Impression: Findings suggest improving cardiac decompensation. PROCEDURE INTERPRETED AT [facility] DEPARTMENT OF RADIOLOGY Final Report Signed by: Dr. Sixto Gtz
[2017-05-09] MEDS: GEMFIBROZIL 600 MG TABLET PO SCH ×2 (08:35→20:48)
[2017-05-09] MEDS: FUROSEMIDE 40 MG/4 ML VIAL IV SCH (08:35)
[2017-05-09] MEDS: ASPIRIN EC 81 MG TABLET PO SCH (08:35)
[2017-05-09] MEDS: METOPROLOL SUCCINATE XL 100 MG TABLET PO SCH (08:35)
[2017-05-09] MEDS ORDERED: ACETAMINOPHEN 325 MG TABLET PO PRN (09:11)
[2017-05-09] MEDS ORDERED: KETOROLAC 30 MG/1 ML VIAL IV PRN (09:11)
--- NOTE | 2017-05-09 09:17 | Hospitalist Progress Note ---
Assessment and Plan (1) CHF (congestive heart failure) Status: Acute Assessment and plan: She is presently being treated with intravenous furosemide. Cardiology has been consulted. I have decreased her furosemide to 40 mg intravenous daily. Current Visit: Yes (2) Pneumonia Status: Acute Assessment and plan: Chest x-ray is suggestive, although not diagnostic of pneumonia. She is presently being treated with intravenous ceftriaxone. Current Visit: Yes (3) Pain Status: Acute Assessment and plan: She has nonspecific diffuse complaints of pain. I am presently treating her with the above indicated medications. Current Visit: Yes Hospitalist: Subjective Interval history: She continues to complain of diffuse pain including headache. She is upset because the nurses have not been responsive giving her analgesic medications. She does not complain of shortness of breath, chest pain, or coughing. She continues to receive intravenous furosemide, intravenous ceftriaxone, and albuterol ipratropium nebulizer therapy. I have ordered for her acetaminophen 650 mg p.o. every 6 hours as needed, [place] 10 mg p.o. every 6 hours as needed, and ketorolac 30 mg IV every 6 hours as needed. Exam - Constitutional Vitals: Period Temp Pulse Resp BP Sys/Mercado Pulse Ox Last 24 Hr 96.4 F-98 F 75-88 18-20 94-114/53-61 95-100 General appearance: no acute distress - Head Head exam: Present: normal inspection - Neck Neck exam: Present: normal inspection - Respiratory Respiratory exam: Present: other (Decreased basilar breath sounds.) - Cardiovascular Cardiovascular exam: Present: regular rate and rhythm - GI/Abdominal GI/Abdominal exam: Present: normal bowel sounds, soft, other (Nontender with no palpable masses or hepatosplenomegaly.) - Extremities Exam Extremities exam: Present: normal inspection - Neurological Exam Neurological exam: Present: alert, oriented X3 - Psychiatric Psychiatric exam: Present: agitated, anxious - Skin Skin exam: Present: normal color, warm, intact Results - Labs CBC & BMP: 05/09/17 05:25 05/09/17 05:25
[2017-05-09] MEDS: ALPRAZolam 0.25 MG TABLET PO PRN ×2 (10:03→17:56)
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
[2017-05-09] MEDS: NICOTINE 21 MG/24 HR PATCH TRANSDERM SCH (12:17)
[2017-05-09] MEDS: cefTRIAXone 1,000 MG in SODIUM CHLORIDE 0.9% 100 ML IV SCH (15:42)
[2017-05-09] MEDS: ENOXAPARIN 40 MG/0.4 ML SYRINGE SUBCUT SCH (20:48)
[2017-05-09] MEDS: SIMVASTATIN 20 MG TABLET PO SCH (20:48)
[2017-05-09] MEDS: SERTRALINE 100 MG TABLET PO SCH (20:48)
[2017-05-09] MEDS: ZALEPLON 5 MG CAPSULE PO PRN (21:44)
[2017-05-10] MEDS: ALBUTEROL/IPRATROPIUM 3 ML NEB RESP TX SCH ×4 (01:21→19:44)
[2017-05-10 04:46] LABS: Basophils % 0.3 % (0.0-0.8); Eosinophils % 0.6 % (0.00-10.9); Hematocrit 41.5 VOL% (35.7-47.0); Hemoglobin 14.1 GM/DL (12.0-16.0); Immature Granulocytes % 0.2 %; Immature Granulocytes Absolute 0.01 #; Lymphocytes # 3.3 10*3/uL (1.4-4.0); Lymphocytes % 52.8 % (21.3-54.2); Mean Corpuscular Hemoglobin 33 PG (27-34); Mean Corpuscular Volume 97.6 FL (87-102); Monocytes # 0.7 10*3/uL (0.11-0.8); Monocytes % 11.4 % (1.7-12.7); Neutrophils # 2.2 10*3/uL (1.4-7.4); Neutrophils % 34.7 % (38.7-73.9); Platelet Count 217 T/CUMM (130-400); Red Blood Count 4.25 MC/CUMM (3.8-5.5); Red Cell Distribution Width 12.4 % (9.3-17.3); White Blood Count 6.3 T/CUMM (4-12)
[2017-05-10 05:25] LABS: Calcium 9.3 MG/DL (8.5-10.1); Magnesium 2.4 MG/DL (1.8-2.4); Osmolality,Calculated 287.4 MOS/KG (273-304)
[2017-05-10 06:01] LABS: Band Neutrophils 1 % (0-10); Eosinophils 1 % (0-10); Hypochromasia 1+; Lymphocytes 48 % (20-55); Segmented Neutrophils 40 % (50-85); Total Cells Counted 100
[2017-05-10] MEDS: NITROGLYCERIN 2% OINT 1 INCH/GM PACK TOP SCH ×3 (06:30→17:46)
[2017-05-10] MEDS: NICOTINE 21 MG/24 HR PATCH TRANSDERM SCH (08:37)
[2017-05-10] MEDS: GEMFIBROZIL 600 MG TABLET PO SCH ×2 (08:38→21:21)
[2017-05-10] MEDS: ASPIRIN EC 81 MG TABLET PO SCH (08:38)
[2017-05-10] MEDS: METOPROLOL SUCCINATE XL 100 MG TABLET PO SCH (08:38)
[2017-05-10] MEDS ORDERED: FUROSEMIDE 40 MG/4 ML VIAL IV SCH (09:00)
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
--- NOTE | 2017-05-10 11:15 | Hospitalist Progress Note ---
Assessment and Plan (1) CHF (congestive heart failure) Status: Acute Assessment and plan: Resolved. Current Visit: Yes (2) Pneumonia Status: Acute Assessment and plan: Chest x-ray is suggestive, although not diagnostic of pneumonia. She is presently being treated with intravenous ceftriaxone. Current Visit: Yes (3) Pain Status: Acute Assessment and plan: She has nonspecific diffuse complaints of pain. I am presently treating her with the above indicated medications. She appears to be well controlled on her present analgesic medications. Current Visit: Yes Hospitalist: Subjective Interval history: Patient feels much improved today. She is not complaining of shortness of breath or pain. She has been seen in consultation by cardiology. Furosemide has been discontinued. Pacemaker analysis demonstrated normal pacemaker function with 100% ventricular pacing. She is to undergo a CT scan of the chest utilizing pulmonary embolism protocol today. Exam - Constitutional Vitals: Period Temp Pulse Resp BP Sys/Mercado Pulse Ox Last 24 Hr 96.5 F-97.9 F 74-91 18-20 90-102/54-61 96-100 General appearance: no acute distress - Head Head exam: Present: normal inspection - Neck Neck exam: Present: normal inspection - Respiratory Respiratory exam: Present: clear to auscultation bilaterally - Cardiovascular Cardiovascular exam: Present: regular rate and rhythm - GI/Abdominal GI/Abdominal exam: Present: normal bowel sounds, soft, other (Nontender with no palpable masses or hepatosplenomegaly.) - Extremities Exam Extremities exam: Present: normal inspection - Neurological Exam Neurological exam: Present: alert, oriented X3 - Psychiatric Psychiatric exam: Present: normal affect, normal mood - Skin Skin exam: Present: normal color, warm, intact Results - Labs CBC & BMP: 05/10/17 04:22 05/10/17 04:22
--- NOTE | 2017-05-10 12:35 | CT Report ---
CT chest pulmonary embolism Indication: Dyspnea Comparison: 18 January 2011 Technique: Axial CT imaging of the chest is performed with intravenous contrast. Contrast dose is 80 cc of Omnipaque 350. Findings: No thrombus or other abnormality is identified in the pulmonary arteries or veins. The pulmonary vessel caliber is within normal limits. The heart, mediastinum and great vessels appear within normal limits. Lung parenchyma shows no evidence of airspace disease or abnormal density. No effusion or pneumothorax is present. Impression: No evidence of pulmonary thromboembolism or other acute process demonstrated. This CT exam was performed using one or more the following dose reduction techniques: Automated exposure control, adjustment of the MA and/or KV according to patient size, or use of iterative reconstruction technique. PROCEDURE INTERPRETED AT [facility] DEPARTMENT OF RADIOLOGY Final Report Signed by: Dr. Sixto Gtz
[2017-05-10] MEDS: cefTRIAXone 1,000 MG in SODIUM CHLORIDE 0.9% 100 ML IV SCH (15:20)
[2017-05-10] MEDS: SERTRALINE 100 MG TABLET PO SCH (21:21)
[2017-05-10] MEDS: ENOXAPARIN 40 MG/0.4 ML SYRINGE SUBCUT SCH (21:21)
[2017-05-10] MEDS: SIMVASTATIN 20 MG TABLET PO SCH (21:21)
[2017-05-10] MEDS: ZALEPLON 5 MG CAPSULE PO PRN (22:33)
[2017-05-11] MEDS: NITROGLYCERIN 2% OINT 1 INCH/GM PACK TOP SCH ×4 (00:07→17:24)
[2017-05-11] MEDS: ALBUTEROL/IPRATROPIUM 3 ML NEB RESP TX SCH ×4 (01:17→19:39)
--- NOTE | 2017-05-11 08:29 | Hospitalist Progress Note ---
Addendum entered and electronically signed by Aurelia Carrillo NP 05/11/17 09:37: Called by Nursing staff for Patient's BP: it has been running on lower side such as 111/52 but now it is 92/55; patient's a.m. dose of Toprol will be HELD at this time. Will continue to monitor BP closely. Patient is asymptomatic at this time. Original Note: <Aurelia Carrillo - Last Filed: 05/11/17 08:26> Assessment and Plan - Time spent with patient Time spent with patient: Less than 30 minutes (1) Pneumonia Status: Acute Assessment and plan: Patient verbalized Breathing is "much better". O2 at 2 liters nasal cannula in use. Will continue IV ceftriaxone. will continue to monitor vital signs and order a.m. labs. Current Visit: Yes (2) CHF (congestive heart failure) Status: Acute Assessment and plan: 05/10/17 resolved. Cardiology plan and recommendations on 05/10/17 as follows: - She is stable from a cardiac point of view. -Stopped Lasix. Pacemaker was interrogated and found to be functioning appropriately. -Echo shows normal systolic function, there is no evidence of pulmonary hypertension. -If her symptoms persist, we may reevaluate for coronary ischemia with a stress test. -She will need to resume follow-up with cardiology: in 4 weeks(follow up with Dr Valdivia in 1 month). We will also need to set her up with remote pacemaker monitoring then. -We will sign off, please call with further questions. Current Visit: Yes (3) Pain Status: Acute Assessment and plan: 05/10/17 Diffuse pain more in her back, She feels the [place] is helping control her pain. will continue to monitor and continue pain medication as needed. Current Visit: Yes Hospitalist: Subjective Interval history: Patient seen and chart reviewed. Patient in no acute distress, sitting up in bed talking with nursing staff. She reports had a good 5 hours of sleep and feeling more resting this morning. She denies chest pain, nausea, vomiting, or chills. slight temp elevation @4 a.m. 99.2, but 98.3 at 7 a.m. She reports still having back pain, not as bad as it was but still frequently hurting. She does report [place] has been helping her pain better. Exam - Constitutional Vitals: Period Temp Pulse Resp BP Sys/Mercado Pulse Ox Last 24 Hr 96.8 F-99.2 F 69-88 18-20 91-118/50-61 96-100 General appearance: over weight - Head Head exam: Present: normal inspection - Eye Eye exam: Present: EOMI Pupils: Present: NICA - Neck Neck exam: Present: normal inspection - Respiratory Respiratory exam: Present: clear to auscultation bilaterally - Cardiovascular Cardiovascular exam: Present: regular rate and rhythm - GI/Abdominal GI/Abdominal exam: Present: normal bowel sounds, soft. Absent: rebound - Extremities Exam Extremities exam: Present: normal inspection, full ROM. Absent: edema - Neurological Exam Neurological exam: Present: alert, oriented X3 - Psychiatric Psychiatric exam: Present: normal affect, normal mood. Absent: agitated, anxious - Skin Skin exam: Present: normal color, warm, dry Results - Labs CBC & BMP: 05/10/17 04:22 05/10/17 04:22 Labs: minimal increase in BUN to 35 (from 34) and decrease in creatinine to 0.90 ( from 1.10) - Diagnostic Findings Procedure: CT - chest: report reviewed by me (05/10/17: no evidence of pulmonary thromboembolism or other acute process demonstrated) Specialty Discharge - Follow Up or Referrals Follow up with: Jacky Valdivia MD [Physician] - 1 Month <Tu Lucero - Last Filed: 05/11/17 10:18> Assessment and Plan (1) CHF (congestive heart failure) Status: Acute Current Visit: Yes (2) Pneumonia Status: Acute Current Visit: Yes (3) Pain Status: Acute Current Visit: Yes Hospitalist: Subjective Interval history: Patient feels much better. She is comfortable. She states that she is approximately 80% improved since the time of her admission. A CT scan of the chest yesterday demonstrated no evidence of pulmonary embolism, pneumonia, or congestive heart failure. I will continue her present treatment for 1 more day. She wants to be discharged tomorrow morning. Exam - Constitutional Vitals: Period Temp Pulse Resp BP Sys/Mercado Pulse Ox Last 24 Hr 96.8 F-99.2 F 69-88 18-20 91-118/50-61 96-100 Results - Labs CBC & BMP: 05/10/17 04:22 05/10/17 04:22
[2017-05-11] MEDS: GEMFIBROZIL 600 MG TABLET PO SCH ×2 (08:46→20:55)
[2017-05-11] MEDS: ASPIRIN EC 81 MG TABLET PO SCH (08:46)
[2017-05-11] MEDS: NICOTINE 21 MG/24 HR PATCH TRANSDERM SCH (08:47)
[2017-05-11] MEDS: METOPROLOL SUCCINATE XL 100 MG TABLET PO SCH ×2 (09:22→16:56)
[2017-05-11] MEDS: cefTRIAXone 1,000 MG in SODIUM CHLORIDE 0.9% 100 ML IV SCH (15:05)
[2017-05-11] MEDS: SIMVASTATIN 20 MG TABLET PO SCH (20:55)
[2017-05-11] MEDS: SERTRALINE 100 MG TABLET PO SCH (20:55)
[2017-05-11] MEDS: ENOXAPARIN 40 MG/0.4 ML SYRINGE SUBCUT SCH (20:55)
[2017-05-11] MEDS: ZALEPLON 5 MG CAPSULE PO PRN (22:09)
[2017-05-12] MEDS: NITROGLYCERIN 2% OINT 1 INCH/GM PACK TOP SCH ×2 (00:20→06:19)
[2017-05-12] MEDS: ALBUTEROL/IPRATROPIUM 3 ML NEB RESP TX SCH ×2 (00:24→07:19)
[2017-05-12 05:21] LABS: Basophils % 0.3 % (0.0-0.8); Eosinophils # 0.1 10*3/uL (0.0-0.87); Eosinophils % 1.2 % (0.00-10.9); Hemoglobin 12.9 GM/DL (12.0-16.0); Immature Granulocytes % 0.1 %; Immature Granulocytes Absolute 0.01 #; Lymphocytes # 4.7 10*3/uL (1.4-4.0); Mean Corpuscular HGB Conc 33.9 GM/DL (32-36); Mean Corpuscular Hemoglobin 33 PG (27-34); Mean Corpuscular Volume 98.2 FL (87-102); Mean Platelet Volume 10.3 FL (9.6-12.0); Monocytes # 0.5 10*3/uL (0.11-0.8); Monocytes % 6.9 % (1.7-12.7); Neutrophils # 2.2 10*3/uL (1.4-7.4); Neutrophils % 29.5 % (38.7-73.9); Platelet Count 211 T/CUMM (130-400); Red Blood Count 3.87 MC/CUMM (3.8-5.5); Red Cell Distribution Width 12.1 % (9.3-17.3); White Blood Count 7.6 T/CUMM (4-12)
[2017-05-12 05:44] LABS: Eosinophils 2 % (0-10); Lymphocytes 62 % (20-55); Segmented Neutrophils 29 % (50-85); Total Cells Counted 100
[2017-05-12 05:45] LABS: Atypical Lymphocytes Few; Giant Platelets Few; Hypochromasia 1+; Platelet Estimate Normal
[2017-05-12 05:51] LABS: Magnesium 2.5 MG/DL (1.8-2.4); Osmolality,Calculated 283.4 MOS/KG (273-304); Potassium 3.8 MMOL/L (3.5-5.1)
[2017-05-12 07:50] VITALS: BP 105/58
[2017-05-12] MEDS: METOPROLOL SUCCINATE XL 100 MG TABLET PO SCH (08:15)
[2017-05-12] MEDS: GEMFIBROZIL 600 MG TABLET PO SCH (08:15)
[2017-05-12] MEDS: ASPIRIN EC 81 MG TABLET PO SCH (08:15)
[2017-05-12] MEDS: NICOTINE 21 MG/24 HR PATCH TRANSDERM SCH (08:20)
--- NOTE | 2017-05-12 09:22 | Discharge Summary ---
<Tu Lucero - Last Filed: 05/12/17 09:20> Hospital Course - Hospital Course Hospital Course: Ms Rangel presented to the Ed 05/07/17 for c/o SOB and upper back pain that wrapped around to her chest. Patient was worked up In ED: CXR: Findings suggestive of pulmonary edema changes. Basilar atelectasis and/or infiltrates and trace pleural effusions are not excluded. EKG: Electronic ventricular Pacemaker at rate 90. Hospitalist consulted for admission and Cardiology consulted. She was started on Rocephin, Nebulizer treatments, diuretics. Repeat labs: Troponins negative; Electrolytes stable Nuclear Lung Scan: Normal nuclear medicine ventilation perfusion scan. This indicates low probability for pulmonary embolism. Cardiology plans & recommendations-She is stable from a cardiac point of view. -Stopped Lasix. -Echo shows normal systolic function, there is no evidence of pulmonary hypertension. -If her symptoms persist, we may reevaluate for coronary ischemia with a stress test. -She will need to resume follow-up with cardiology. I can see her back in 4 weeks. We will also need to set her up with remote pacemaker monitoring then. -We will sign off, please call with further questions. ECHO: IMPRESSIONS Normal left ventricular cavity size. Mild concentric left ventricular hypertrophy with grade 1 diastolic dysfunction. Left ventricular ejection fraction is estimated at 55 %. Abnormal septal motion. Normal right ventricular size. Pacemaker wires in the right-sided heart chamber Further evalaution: CT Chest: Impression: No evidence of pulmonary thromboembolism or other acute process demonstrated. REPEAT CXR: suggested improving cardiac decompensation. Repeat labs: Troponins remain negative; Electrolytes within normal ranges. H&H (14.0&41.6) stable; WBC(8.1) stable; Triglycerides 83; Cholesterol 156; LDL 105; HDL 41. Patient is a 56-year-old white female who was hospitalized with complaints of left back and chest pain, shortness of breath, and coughing. Evaluation in the emergency department included a chest x-ray demonstrating infiltrate compatible with either pulmonary edema or pneumonia or both. She is a previous history of chronic obstructive pulmonary disease. She was treated for an acute exacerbation of COPD, possible pneumonia, and possible congestive heart failure. She received intravenous furosemide, intravenous ceftriaxone, and albuterol ipratropium nebulizer therapy. She improved significantly during her hospitalization. At the time of discharge she was stable with no complaints. Diagnosis - Discharge Diagnosis (1) CHF (congestive heart failure) Status: Acute (2) Pneumonia Status: Acute (3) Pain Status: Acute Specialty Discharge - Follow Up or Referrals Follow up with: Jacky Valdivia MD [Physician] - 1 Month Discharge Plan - Discharge Data Condition at Discharge: Stable Discharge Diet: advance to your usual diet Activity: resume usual activities as tolerated Driving: no restrictions - Discharge Medications Continue Sertraline [Zoloft] 200 mg PO BEDTIME Gemfibrozil [Lopid] 600 mg PO BID Simvastatin [Zocor] 20 mg PO BEDTIME Metoprolol Succinate Xl [Toprol Xl] 100 mg PO DAILY Triamterene/Hctz 37.5-25 Tab [Maxzide 37.5-25] 1 tablet PO DAILY Aspirin EC Tab 81 mg PO DAILY - Follow Up or Referral Follow Up: Jacky Valdivia MD [Physician] - 1 Month - Forms/Instructions Instructions: How to Stop Smoking (DC), Chronic Obstructive Pulmonary Disease ( DC), Dyspnea (GEN) Exam - Constitutional Vitals: Period Temp Pulse Resp BP Sys/Mercado Pulse Ox Last 24 Hr 96 F-98.5 F 68-88 17-20 98-120/52-80 92-99 General appearance: no acute distress - Head Head exam: Present: normal inspection - Neck Neck exam: Present: normal inspection - Respiratory Respiratory exam: Present: clear to auscultation bilaterally - Cardiovascular Cardiovascular exam: Present: regular rate and rhythm - GI/Abdominal GI/Abdominal exam: Present: normal bowel sounds, soft - Extremities Exam Extremities exam: Present: normal inspection - Neurological Exam Neurological exam: Present: alert, oriented X3 - Psychiatric Psychiatric exam: Present: normal affect - Skin Skin exam: Present: normal color, warm, intact Discharge Results Procedures and tests throughout hospitalization: Pending Orders 05/07/17 15:41 Blood Culture Stat Labs on day of discharge: Labs from last 24 hours 05/12/17 05/12/17 03:40 03:40 WBC 7.6 RBC 3.87 Hgb 12.9 Hct 38.0 MCV 98.2 MCH 33 MCHC 33.9 RDW 12.1 Plt Count 211 MPV 10.3 Neut % (Auto) 29.5 L Lymph % (Auto) 62.0 H [place] % (Auto) 6.9 Eos % (Auto) 1.2 Baso % (Auto) 0.3 Neut # (Auto) 2.2 Lymph # (Auto) 4.7 H [place] # (Auto) 0.5 Eos # (Auto) 0.1 Baso # (Auto) 0.0 Total Counted 100 Immature Gran % 0.1 Nucleated RBC % 0.0 Immature Gran # 0.01 Segmented Neutrophils 29 L Lymphocytes 62 H Monocytes 7 Eosinophils 2 Nucleated RBCs # 0.00 Atypical Lymphocytes Few Platelet Estimate Normal Giant Platelets Few Immature Plt Fraction 0.0 Hypochromasia 1+ Sodium 140 Potassium 3.8 Chloride 105 Carbon Dioxide 30 Anion Gap 8.8 BUN 26 H Creatinine 0.80 GFR Calculation 107 BUN/Creatinine Ratio 32.00 H Glucose 100 Calculated Osmolality 283.4 Calcium 9.0 Magnesium 2.5 H Preliminary micro results at discharge 05/07/17 15:41 Blood Culture - Preliminary Blood No growth at 3 days 05/07/17 15:41 Blood Culture - Preliminary Blood No growth at 3 days DS: Provider Date of admission: 05/07/17 17:05 Primary care physician: . No PCP Attending physician on admission: Mitra Smith MD Consults: 05/07/17 18:20 Consult to Physician [CONS] Routine Comment: PPM, atypical cp, chf Consulting Provider: Cardiology - [facility] Person Notified: Chetna Date Notified: 05/08/17 Time Notified: 07:40 05/07/17 18:28 Consult to Dietitian [CONS] Routine Reason for Dietitian: Dietary Consult Discharging clinician: Tu Lucero <Aurelia Carrillo - Last Filed: 05/12/17 09:48> Diagnosis - Discharge Diagnosis (1) Pneumonia Status: Acute (2) CHF (congestive heart failure) Status: Acute (3) Pain Status: Acute
[2017-05-12] MEDS: ALPRAZolam 0.25 MG TABLET PO PRN (09:39)
== END 2017-05-12 10:42 | disposition home or self-care (01) | DRG 291 ==
LOC: EDBD → EDUNIT# → N.ED 15:07 → N.EDINP 17:05 → SUATTDRO 17:05 → N.EDINP 18:10 → N.TELES 18:20
PROVIDERS: ADMIT Family Medicine

== ENCOUNTER 2021-10-22 13:05 | Inpatient (IN) ==
[2021-10-22 14:12] LABS: Basophils % 0.2 % (0.0-0.8); Eosinophils % 0.2 % (0.00-10.9); Hematocrit 45.4 VOL% (35.7-47.0); Hemoglobin 15.5 GM/DL (12.0-16.0); Immature Granulocytes % 0.4 %; Immature Granulocytes Absolute 0.05 #; Lymphocytes # 3.6 10*3/uL (1.4-4.0); Lymphocytes % 30.1 % (21.3-54.2); Mean Corpuscular HGB Conc 34.1 GM/DL (32-36); Mean Corpuscular Volume 92.7 FL (87-102); Mean Platelet Volume 11.1 FL (9.6-12.0); Monocytes % 5.6 % (1.7-12.7); Neutrophils % 63.5 % (38.7-73.9); Platelet Count 227 T/CUMM (130-400); Red Cell Distribution Width 12.9 % (9.3-17.3); White Blood Count 12.1 T/CUMM (4-12)
[2021-10-22 14:35] LABS: Albumin 2.7 G/DL (3.4-5.0); Bilirubin,Total 0.5 MG/DL (0.20-1.00); Calcium 8.3 MG/DL (8.5-10.1); Osmolality,Calculated 279.2 MOS/KG (273-304); Potassium 3.4 MMOL/L (3.5-5.1); Total Protein 6.8 G/DL (6.4-8.2)
[2021-10-22] MEDS ORDERED: SODIUM CHLORIDE 0.9% 1,000 ML IV STA ×2 (15:28→16:57)
[2021-10-22] MEDS ORDERED: POTASSIUM CHLORIDE 20 MEQ TABLET PO STA (16:18)
[2021-10-22 16:29] LABS: Bilirubin,Urine Negative (Negative); Blood, Urine Negative (Negative); Glucose,Urine (UA) Negative (Negative); Hyaline Casts,Urine 8 /LPF (0-3); Ketones,Urine 5 mg/dL (Negative); Mucus,Urine Occasional /LPF (Occasional); Nitrite,Urine Negative (Negative); Protein,Urine 30 MG/DL; RBC,Urine 1 /HPF (0-4); Squamous Epithelial Cell,Urine Occasional /HPF (0-10); Urine Appearance CLEAR (Clear); Urine Color Yellow (Yellow); Urine Specific Gravity 1.024 (1.001-1.035); Urine Urobilinogen < 2.0 EU/DL (<2.0)
[2021-10-22] MEDS ORDERED: LEVOFLOXACIN INJ 500 MG/100 ML PREMIX IV ONE (16:57)
[2021-10-22] MEDS ORDERED: DEXAMETHASONE 4 MG/1 ML VIAL IV STA (16:58)
[2021-10-22] MEDS ORDERED: ONDANSETRON 4 MG/2 ML VIAL IV PRN (17:57)
[2021-10-22] MEDS ORDERED: GLUCAGON 1 MG VIAL IM PRN (17:57)
[2021-10-22] MEDS ORDERED: ACETAMINOPHEN 325 MG TABLET PO PRN (17:57)
[2021-10-22] MEDS ORDERED: AZITHROMYCIN INJ 500 MG in SODIUM CHLORIDE 0.9% 250 ML IV ONE (18:09)
[2021-10-22] MEDS ORDERED: MAGNESIUM SULF RIDER 4 GM/100 ML PREMIX IV PRN (18:12)
[2021-10-22] MEDS ORDERED: POTASSIUM CHLORIDE RIDER 10 MEQ/100 ML PREMIX IV PRN (18:12)
[2021-10-22] MEDS ORDERED: MAGNESIUM SULF RIDER 2 GM/50 ML PREMIX IV PRN (18:12)
[2021-10-22] MEDS ORDERED: NICOTINE 21 MG/24 HR PATCH TRANSDERM PRN (18:14)
[2021-10-22] MEDS ORDERED: DEXTROSE 10% 25 GM/250 ML BAG IV PRN (18:15)
[2021-10-22 18:50] LABS: Barbiturates Screen,Urine Negative (Negative); Benzodiazepines Screen,Urine Negative (Negative); Cannabinoid Screen,Urine Positive (Negative); Opiate Screen,Urine Negative (Negative); Phencyclidine Screen,Urine Negative (Negative)
[2021-10-22 18:55] LABS: INR 1.7; PT Patient Result 18.5 SECS (10.5-12.0)
[2021-10-22] MEDS: LACTATED RINGERS 1,000 ML IV SCH (18:56)
[2021-10-22] MEDS: ALBUTEROL INHALER 18 GM INH SCH (19:13)
[2021-10-22] MEDS ORDERED: ENOXAPARIN 30 MG/0.3 ML SYRINGE SUBCUT SCH (21:00)
[2021-10-22] MEDS: FAMOTIDINE 20 MG TABLET PO SCH (23:12)
[2021-10-22] MEDS: ASCORBIC ACID 500 MG TABLET PO SCH (23:12)
[2021-10-23] MEDS: ALBUTEROL INHALER 18 GM INH SCH ×4 (02:47→22:05)
[2021-10-23] MEDS: LACTATED RINGERS 1,000 ML IV SCH ×3 (02:48→22:06)
[2021-10-23 05:36] LABS: Hematocrit 41.6 VOL% (35.7-47.0); Immature Granulocytes % 0.3 %; Immature Granulocytes Absolute 0.02 #; Lymphocytes # 1.8 10*3/uL (1.4-4.0); Lymphocytes % 29.5 % (21.3-54.2); Mean Corpuscular HGB Conc 33.7 GM/DL (32-36); Mean Corpuscular Volume 93.5 FL (87-102); Mean Platelet Volume 10.4 FL (9.6-12.0); Monocytes % 7.5 % (1.7-12.7); Neutrophils % 62.7 % (38.7-73.9); Platelet Count 187 T/CUMM (130-400); Red Blood Count 4.45 MC/CUMM (3.8-5.5); Red Cell Distribution Width 12.8 % (9.3-17.3); White Blood Count 6.1 T/CUMM (4-12)
[2021-10-23 05:51] LABS: Albumin 2.2 G/DL (3.4-5.0); Bilirubin,Total 0.4 MG/DL (0.20-1.00); Calcium 8.1 MG/DL (8.5-10.1); Osmolality,Calculated 280.7 MOS/KG (273-304); Potassium 3.7 MMOL/L (3.5-5.1); Risk Ratio 7.11; Thyroid Stimulating Hormone 0.303 uIU/ml (0.358-3.74); Total Protein 5.7 G/DL (6.4-8.2); VLDL Cholesterol 35.8 MG/DL
[2021-10-23] MEDS ORDERED: SODIUM CHLORIDE 0.9% 500 ML IV ONE (09:00)
[2021-10-23] MEDS: ZINC GLUCONATE 50 MG TABLET PO SCH (09:22)
[2021-10-23] MEDS: CHOLECALCIFEROL 1,000 UNIT TABLET PO SCH (09:22)
[2021-10-23] MEDS: FAMOTIDINE 20 MG TABLET PO SCH ×2 (09:25→22:05)
[2021-10-23] MEDS: cefTRIAXone 1,000 MG in SODIUM CHLORIDE 0.9% 100 ML IV SCH (09:25)
[2021-10-23] MEDS: DEXAMETHASONE 4 MG/1 ML VIAL IV SCH (09:25)
[2021-10-23] MEDS: ASCORBIC ACID 500 MG TABLET PO SCH ×2 (09:25→22:05)
[2021-10-23] MEDS ORDERED: REMDESIVIR 200 MG in SODIUM CHLORIDE 0.9% 210 ML IV ONE (12:00)
[2021-10-23] MEDS ORDERED: ENOXAPARIN 40 MG/0.4 ML SYRINGE SUBCUT SCH (21:00)
[2021-10-24] MEDS: ALBUTEROL INHALER 18 GM INH SCH ×2 (02:05→11:07)
[2021-10-24] MEDS: LACTATED RINGERS 1,000 ML IV SCH ×2 (03:00→11:45)
[2021-10-24 05:54] LABS: Hematocrit 41.2 VOL% (35.7-47.0); Hemoglobin 13.9 GM/DL (12.0-16.0); Immature Granulocytes % 0.3 %; Immature Granulocytes Absolute 0.01 #; Lymphocytes # 1.1 10*3/uL (1.4-4.0); Mean Corpuscular HGB Conc 33.7 GM/DL (32-36); Mean Corpuscular Volume 93.4 FL (87-102); Mean Platelet Volume 10.2 FL (9.6-12.0); Monocytes % 6.1 % (1.7-12.7); Neutrophils % 62.6 % (38.7-73.9); Platelet Count 173 T/CUMM (130-400); Red Blood Count 4.41 MC/CUMM (3.8-5.5); Red Cell Distribution Width 12.9 % (9.3-17.3); White Blood Count 3.5 T/CUMM (4-12)
[2021-10-24 06:16] LABS: Alanine Aminotransferase 14 U/L (13-56); Albumin 2.3 G/DL (3.4-5.0); Alkaline Phosphatase 55 U/L (45-117); Aspartate Amino Transferase 24 U/L (0-37); Bilirubin,Total < 0.39 MG/DL (0.20-1.00); Blood Urea Nitrogen 19 MG/DL (7-18); Calcium 8.6 MG/DL (8.5-10.1); Carbon Dioxide 23 MMOL/L (21-32); Estimated Glom Filtration Rate 117 ML/MIN; Glucose 109 MG/DL (74-106); Osmolality,Calculated 283.3 MOS/KG (273-304); Potassium 3.9 MMOL/L (3.5-5.1); Sodium 141 MMOL/L (136-145); Total Protein 6.1 G/DL (6.4-8.2)
[2021-10-24] MEDS: DEXAMETHASONE 4 MG/1 ML VIAL IV SCH (08:45)
[2021-10-24] MEDS: CHOLECALCIFEROL 1,000 UNIT TABLET PO SCH (08:46)
[2021-10-24] MEDS: FAMOTIDINE 20 MG TABLET PO SCH (08:48)
[2021-10-24] MEDS: ASCORBIC ACID 500 MG TABLET PO SCH (08:48)
[2021-10-24] MEDS: ZINC GLUCONATE 50 MG TABLET PO SCH (08:48)
[2021-10-24] MEDS ORDERED: REMDESIVIR 100 MG in SODIUM CHLORIDE 0.9% 100 ML IV SCH (09:00)
[2021-10-24] MEDS: cefTRIAXone 1,000 MG in SODIUM CHLORIDE 0.9% 100 ML IV SCH (10:16)
[2021-10-24 14:12] VITALS: BP 106/66
== END 2021-10-24 13:53 | disposition home or self-care (01) | DRG 177 ==
LOC: EDUNIT# → EDBD → N.ED 13:05 → SUATTDRO 17:57 → N.EDINP 17:57 → N.ED 10-24 13:53 → N.EDINP 10-24 13:53
PROVIDERS: ADMIT Internal Medicine; ATTEND Internal Medicine